=== PATIENT | male | born 1965 | race African-American/Black ===

== ENCOUNTER 2019-01-25 17:40 | Inpatient (IN) | payer OTHER ==
[~2019-01-25] VITALS: Ht 182.9 cm; Wt 120.7 kg
[2019-01-25 17:46] VITALS: BP 176/104
[2019-01-25 18:02] LABS: ABSOLUTE BASOPHILS 0.1 thou/uL (0.0-0.2); ABSOLUTE EOSINOPHILS 0.2 thou/uL (0.0-0.7); ABSOLUTE MONOCYTES 0.7 thou/uL (0.0-1.2); ABSOLUTE NEUTROPHILS 5.1 thou/uL (1.6-8.1); BASOPHILS 1.2 %; EOSINOPHILS 2.2 %; HEMATOCRIT 42.7 % (42.0-52.0); HEMOGLOBIN 13.8 gm/dL (14.0-18.0); LYMPHOCYTES 25.1 %; MCH 28.1 pg (26.0-34.0); MCHC 32.2 g/dL (28.0-37.0); MONOCYTES 8.6 %; MPV 7.9 fl. (7.2-11.1); NUCLEATED RBCS 0 /100WBC; PLATELET COUNT* 294 thou/uL (150-400); POLYS 62.9 %; RBC 4.91 mil/uL (4.50-6.00); RDW-CV 14.9 % (10.5-14.5); WBC 8.1 thou/uL (4.0-11.0)
[2019-01-25 18:10] LABS: PROTIME 10.3 Seconds (9.20-11.50)
[2019-01-25 18:11] LABS: ANION GAP 7 mmol/L (7-16); BUN 28 mg/dL (7-18); CALCIUM 8.7 mg/dL (8.5-10.1); CHLORIDE 104 mmol/L (98-107); CO2 28 mmol/L (21-32); CREATININE 2.1 mg/dL (0.6-1.3); GLUCOSE 95 mg/dL (70-99); POTASSIUM 4.1 mmol/L (3.5-5.1); SODIUM 139 mmol/L (136-145)
[2019-01-25] MEDS ORDERED: KEPPRA 500 MG500 M1 PO (18:13)
[2019-01-25] MEDS ORDERED: NORVASC5 MG PO (18:13)
[2019-01-25] MEDS ORDERED: LIPITOR40 MG PO (18:16)
[2019-01-25 18:20] LABS: ALBUMIN 3.7 g/dL (3.4-5.0); ALKALINE PHOSPHATASE 68 U/L (46-116); SGOT 21 U/L (15-37); SGPT 40 U/L (30-65); TOTAL BILIRUBIN 0.3 mg/dL (<0.1-1.0); TROPONIN-I LEVEL <0.06 ng/mL (<0.06)
[2019-01-25] MEDS ORDERED: ISOSORBIDE MONO20 MG PO (18:56)
[2019-01-25] MEDS ORDERED: PROZAC20 MG PO (18:57)
[2019-01-25] MEDS ORDERED: ASPIRIN EC81 M1 PO (19:42)
[2019-01-25] MEDS ORDERED: LIPITOR10 MG PO (20:19)
[2019-01-25 20:26] VITALS: BP 163/101
[2019-01-25 21:00] VITALS: BP 170/105
[2019-01-26] VITALS: BP 150/92
[2019-01-26 03:58] VITALS: BP 152/95
[2019-01-26 05:16] LABS: ABSOLUTE EOSINOPHILS 0.2 thou/uL (0.0-0.7); ABSOLUTE LYMPHOCYTES 1.9 thou/uL (0.8-5.3); ABSOLUTE MONOCYTES 0.6 thou/uL (0.0-1.2); ABSOLUTE NEUTROPHILS 4.2 thou/uL (1.6-8.1); BASOPHILS 0.7 %; EOSINOPHILS 2.7 %; HEMATOCRIT 43.1 % (42.0-52.0); HEMOGLOBIN 13.7 gm/dL (14.0-18.0); LYMPHOCYTES 27.1 %; MCH 27.8 pg (26.0-34.0); MCHC 31.7 g/dL (28.0-37.0); MCV 87.5 fL (80.0-100.0); MONOCYTES 9.2 %; MPV 7.5 fl. (7.2-11.1); NUCLEATED RBCS 0 /100WBC; PLATELET COUNT* 296 thou/uL (150-400); POLYS 60.3 %; RBC 4.93 mil/uL (4.50-6.00); WBC 6.9 thou/uL (4.0-11.0)
[2019-01-26 05:32] LABS: ANION GAP 6 mmol/L (7-16); BUN 24 mg/dL (7-18); CALCIUM 8.6 mg/dL (8.5-10.1); CHLORIDE 107 mmol/L (98-107); CHOLESTEROL 123 mg/dL (<200); CO2 29 mmol/L (21-32); GLUCOSE 88 mg/dL (70-99); HDL CHOLESTEROL 45 mg/dL (>40); LDL CHOLESTEROL 62 mg/dL (<100); POTASSIUM 3.6 mmol/L (3.5-5.1); SODIUM 142 mmol/L (136-145); TC:HDL 2.7 Ratio (Not establshd); TRIGLYCERIDE 84 mg/dL (<150); VLDL 17 mg/dL (<40)
[2019-01-26 05:39] LABS: SERUM ASSESSMENT Clear
--- NOTE | 2019-01-26 06:00 | NUR ---
RECEIVED REPORT FROM ALCON ARRIAZA. PT TRANSFERRED TO 209. PT A&OX4. VSS. SUPERINTENDENT QUARRY IN PLACE. ADMISSION HISTORY & PHYSICAL ASSESSMENT COMPLETED AND CHARTED. PT ON RA/CPAP WHEN SLEEPING. PT TRACING SR ON TELE. ORIENTED TO ROOM & CALL LIGHT. NIH CHARTED. PT UPADLIB TO RESTROOM. DENIES ANY PAIN OR SOA. PT ABLE TO SLEEP WELL ON BED. CALL LIGHT WITHIN REACH.
--- NOTE | 2019-01-26 07:20 | NUR ---
CHNAGE OF SHIFT, BEDSIDE REPORT GIVEN PATIENT IN BED ASLEEP ASSUMED PATIENT CARE
[2019-01-26 08:00] VITALS: BP 115/81
[2019-01-26 08:56] LABS: URINE BILIRUBIN NEGATIVE (Negative); URINE BLOOD NEGATIVE (Negative); URINE CLARITY CLEAR; URINE COLOR YELLOW; URINE GLUCOSE-RANDOM NEGATIVE (Negative); URINE KETONES NEGATIVE (Negative); URINE LEUKOCYTES-REFLEX NEGATIVE (Negative); URINE NITRITE-REFLEX NEGATIVE (Negative); URINE PROTEIN NEGATIVE (Negative); URINE UROBILINOGEN 0.2 E.U./dl (0.2-1.0)
[2019-01-26 09:03] LABS: AMP/METHAMP Negative (Negative); BARBITURATES Negative (Negative); BENZODIAZEPINES Negative (Negative); COCAINE Negative (Negative); METHADONE Negative (Negative); OPIATES Negative (Negative); PCP Negative (Negative); THC Negative (Negative)
[2019-01-26] MEDS ORDERED: LIPITOR 20 MG T20 M1 PO (11:06)
[2019-01-26] MEDS ORDERED: PLAVIX 75 MG TA75 M1 PO (11:06)
--- NOTE | 2019-01-26 11:08 | EKG ---
[place] [address] ELECTROCARDIOGRAM REPORT Name: MARGARETH SWIFT Room: [address] ADM IN .R.#: [id number] Admission: 01/25/19 Attend Phys: Edmar Babcock MD Discharge: Date of : 63 Report #: [id number] THIS REPORT FOR: //name// [facility] ED Test Date: 2019-01-25 Test Time: 17:51:00 Pat Name: MARGARETH SWIFT Department: Room: [facility] Gender: M Computer Applications Developer: : 1965 Requested By: Noel Hudson Order Number: [id number] MD: Pola Astorga Measurements Intervals [place] Rate: 67 P: 56 NE: 200 QRS: 56 QRSD: 102 T: 32 QT: 448 QTc: 473 Interpretive Statements Sinus rhythm Baseline wander in lead(s) I,II,III,aVR,aVF,V1,V2,V3,V4,V5,V6 No previous ECG available for comparison Electronically Signed On 01-26-2019 11:07:56 CDT by Pola Astorga [email or web address] <ELECTRONICALLY SIGNED> By: Pola Astorga MD, [facility] 01/26/19 1107 1751 1751 Pola Astorga MD, [facility] /EPI
[2019-01-26 11:14] VITALS: BP 115/81
--- NOTE | 2019-01-26 11:30 | NUR ---
Pt is A&O. Resides at home alone. Active and independent. Pt uses a cpap, no other DME. Hx of , does not recall the name of the agency. No hx of SNF. Goal is home at de. No needs anticipated.
--- NOTE | 2019-01-26 12:15 | NUR ---
DISCHARGE TO HOME DISCHARGE INSTRUCTION GIVEN, ACKNOWLEDGED, SIGNED COPIES GIVEN IV AND HEART MONITOR REMOVED PERSONAL BELONGINGS RETURNED ESCORTED OUT TO [facility]
--- NOTE | 2019-01-26 12:57 | 2DMMODE ---
[place] [address] 2 D/M-MODE ECHOCARDIOGRAM Name: MARGARETH SWIFT Room: [address] IN [facility]#: [id number] Admission: 01/25/19 Attend Phys: Edmar Babcock MD Discharge: 01/26/19 Date of : 63 Date of Service: 01/26/19 1257 Report #: [id number] THIS REPORT FOR: //name// APPROVED REPORT Study performed: 01/26/2019 10:33:26 EXAM: Comprehensive 2D, Doppler, and color-flow Echocardiogram Patient Location: In-Patient Room #: [facility] Status: routine BSA: 2.42 HR: 75 bpm BP: 115/81 mmHg Rhythm: NSR Other Information Study Quality: Good Indications CVA/TIA Echo Enhancing Agent Indication: Rule out Shunt Agent(s) / Amount(s) Used: Agitated Saline 10 cc 2D Dimensions IVSd: 15.31 (7-11mm) LVOT Diam: 24.31 (18-24mm) LVDd: 54.75 mm PWd: 13.82 (7-11mm) Ascending Ao: 41.16 (22-36mm) LVDs: 36.70 (25-40mm) Aortic Root: 38.52 mm Volumes Left Atrial Volume (Systole) LA ESV Index: 27.40 mL/m2 Aortic Valve AoV Peak Yordy.: 1.43 m/s AO Peak Gr.: 8.23 mmHg LVOT Max P.38 mmHg AO Mean Gr.: 4.48 mmHg LVOT Mean P.54 mmHg LVOT Max V: 0.92 m/s AO V2 VTI: 29.30 cm LVOT Mean V: 0.56 m/s TIFF (VTI): 2.80 cm2 LVOT V1 VTI: 17.68 cm AI Haakon: 2.66 m/s2 [place] [address] 2 D/M-MODE ECHOCARDIOGRAM Name: MARGARETH SWIFT Room: [address] IN .R.#: [id number] Admission: 01/25/19 Attend Phys: Edmar Babcock MD Discharge: 01/26/19 Date of : 63 Date of Service: 01/26/19 1257 Report #: [id number] AI PHT: 439.89 ms Mitral Valve E/A Ratio: 0.71 MV Decel. Time: 281.30 ms MV E Max Yordy.: 0.58 m/s MV PHT: 81.58 ms MVA (PHT): 2.70 cm2 TDI E/Lateral E': 7.25 E/Medial E': 9.67 Medial E' Yordy.: 0.06 m/s Lateral E' Yordy.: 0.08 m/s Pulmonary Valve PV Peak Yordy.: 0.91 m/s PV Peak Gr.: 3.29 mmHg Left Ventricle The left ventricle is normal size. There is normal LV segmental wall motion. Moderate concentric left ventricular hypertrophy. Left ventricular systolic function is normal. The left ventricular ejection fraction is within the normal range. LVEF is 55-60%. Grade I - abnormal relaxation pattern. Right Ventricle The right ventricle is normal size. The right ventricular systolic function is normal. Atria The left atrium size is normal. Interatrial septum is intact without evidence of ASD or PFO. The right atrium size is normal. Aortic Valve The aortic valve is normal in structure. Mild aortic regurgitation. There is no aortic valvular stenosis. Mitral Valve The mitral valve is normal in structure. Trace mitral regurgitation. No evidence of mitral valve stenosis. Tricuspid Valve The tricuspid valve is normal in structure. Unable to assess PA pressure. Trace tricuspid regurgitation. Pulmonic Valve The pulmonary valve is normal in [place] [address] 2 D/M-MODE ECHOCARDIOGRAM Name: MARGARETH SWIFT Room: [address] IN M.R.#: [id number] Admission: 01/25/19 Attend Phys: Edmar Babcock MD Discharge: 01/26/19 Date of : 63 Date of Service: 01/26/19 1257 Report #: [id number] regurgitation. Great Vessels Aortic root is mildly dilated. IVC is normal in size and collapses >50% with inspiration. Pericardium There is no pericardial effusion. <Conclusion> Moderate concentric left ventricular hypertrophy. LVEF is 55-60%. Interatrial septum is intact without evidence of ASD or PFO. Mild aortic regurgitation. <ELECTRONICALLY SIGNED> By: Pola Astorga MD, FACC 01/26/19 1257 1257 1257 Pola Astorga MD, FACC /INF
[2019-01-27 04:06] LABS: GLYCOHEMOGLOBIN (HGB A1C) 6.2 % (4.8-5.6)
--- NOTE | 2019-01-28 10:45 | CON ---
[address] [address] CONSULTATION Name: MARGARETH SWIFT Room: [address] IN .R.#: [id number] Admission: 01/25/19 Attend Phys: Edmar Babcock MD Discharge: 01/26/19 Date of : 63 Report #: [id number] THIS REPORT FOR: //name// CC: Dimas Babcock DATE OF SERVICE: 01/25/2019 HISTORY OF PRESENT ILLNESS: This 53-year-old male patient who was seen in the Emergency Room. It looks like he presented there with numbness on the right side. It was predominantly in the hand. To some extent, the whole right arm was affected. Symptoms have mostly resolved. He had a stroke few years ago, he was at [facility]. They did the workup. I do not have the workup, but he was left with some difficulty with aphasia, but was able to go back to the work. It looks like he made a fairly good recovery from that. He indicated that he has not taken his medication when this episode happened. He does have a history of stroke in the past. He does have a history of hypertension. REVIEW OF SYSTEMS: Positive for stroke in the past. He does not have any evidence for a new stroke. He does have hypertension. He had a single seizure after his stroke and he was put on Keppra and he is on Keppra. He has no significant side effects from Keppra. A 14-point review of system was otherwise mostly unremarkable. PAST MEDICAL HISTORY: Positive for stroke. I do not have those records. FAMILY HISTORY: Unremarkable. SOCIAL HISTORY: He said he does not smoke. PHYSICAL EXAMINATION: Indicates he is alert, responsive. His speech, concentration, fund of knowledge and memory looks mostly unremarkable in spite of his prior stroke and history of aphasia. Cranial nerve examination and neuromuscular examination also appears mostly unremarkable. There is no meningeal sign. There is no carotid bruit. Pulses are palpable. He has no edema, cyanosis or jaundice. He is a very well-built individual who does not have any dysmorphic features of eyes, ears and face. His blood pressure is 163/101, respiration is 20, pulse is 70 and temperature is 98.7. LABORATORY DATA: His white count is 8.1 and his creatinine is 2.1. IMPRESSION: It is unclear if the patient had recurrence of stroke. This is because the MRI is normal. I considered the possibility of focal nonconvulsive seizure because of prior history of seizures, but I am not convinced that was a seizure either. He said he was sitting and because of that it is unlikely to be carpal tunnel syndrome, although his numbness was [place] [address] CONSULTATION Name: MARGARETH SWIFT Room: [address] IN ..#: [id number] Admission: 01/25/19 Attend Phys: Edmar Babcock MD Discharge: 01/26/19 Date of : 63 Report #: [id number] I discussed the situation with him. I think he needs further workup. I gave him the option of getting the workup done as an outpatient here or at [facility]. He wants to get the workup done at [facility] because of his records and his physicians are there. I will defer further workup to them, but will suggest the followin. Presently, we can put him on dual-antiplatelet therapy with aspirin and Plavix. Plavix will be 75 mg and aspirin will be 81 mg. 2. I will favor doing an EMG of the right upper extremity to see if he does not have any compressive neuropathy like carpal tunnel syndrome. 3. Ultimately, his question of Keppra needs to be addressed because he had a single seizure, but presently I will leave him on Keppra. 4. We will get an echocardiogram done because of his history of congestive heart failure. 5. I do not know what workup has been done on him including prolonged monitoring to look for atrial fibrillation, cardiolipin antibodies, some collagen vascular workup, etc. RECOMMENDATIONS: Since he is going to follow up with them and they can check on that. Presently, I will just change him to a combination of aspirin and Plavix and continue statin and asked him to make a followup appointment with his scheduled neurologist as soon as possible for further management. Thank you very much for this referral and if you have any question, please feel free to contact me. <ELECTRONICALLY SIGNED> By: Jori Hearn MD 01/28/19 1045 2054 [id number] Hearn MD /nt
== END 2019-01-26 12:15 | disposition home or self-care (01) | DRG 69 ==
LOC: M.ERS 17:40 → M.2W 18:36 → M.TBA-ER 18:36 → M.2W 20:30
PROVIDERS: Emergency Medicine Emergency Medical Services; ADMIT Family Medicine
DX: G45.9 Transient cerebral ischemic attack, unspecified (principal); N18.3 Chronic kidney disease, stage 3 (moderate); I12.9 Hypertensive chronic kidney disease with stage 1 through stage 4 chronic kidney disease, or unspecified chronic kidney disease; Z90.5 Acquired absence of kidney; Z85.528 Personal history of other malignant neoplasm of kidney; Z79.899 Other long term (current) drug therapy; Z79.82 Long term (current) use of aspirin; Z82.49 Family history of ischemic heart disease and other diseases of the circulatory system; Z80.8 Family history of malignant neoplasm of other organs or systems; I69.320 Aphasia following cerebral infarction; Z88.8 Allergy status to other drugs, medicaments and biological substances